=== PATIENT | female | born 1960 | race Asian ===

== ENCOUNTER 2019-06-14 21:30 | Emergency (ER) | payer OTHER ==
[~2019-06-14] VITALS: Ht 157.5 cm; Wt 61.2 kg
[2019-06-14 21:40] VITALS: Ht 157.5 cm; Wt 61.2 kg
[2019-06-14 23:24] VITALS: BP 118/80
== END 2019-06-14 23:24 | disposition home or self-care (01) ==
LOC: ED 21:30
DX: S61.211A Laceration without foreign body of left index finger without damage to nail, initial encounter (principal); Z98.890 Other specified postprocedural states; W26.0XXA Contact with knife, initial encounter; Y93.89 Activity, other specified; Y92.89 Other specified places as the place of occurrence of the external cause; Y99.8 Other external cause status
CPT/HCPCS: 90715